=== PATIENT | male | born 1965 | race Caucasian/White ===

== ENCOUNTER 2020-05-19 18:03 | Emergency (ER) | payer OTHER, SELFPAY ==
[2020-05-19 18:08] VITALS: PULSE 0; PULSE 100; RESP 12; RESP 14; RESP 16; O2SAT 80; O2SAT 84; O2SAT 86
--- NOTE | 2020-05-19 18:31 | ED.RN ---
APPROXIMATELY 400ML OF 0.9NS GIVEN
--- NOTE | 2020-05-19 18:33 | ED.RN ---
PT'S BLOOD SUGAR PER EMS WAS 92
[2020-05-19 18:48] VITALS: RESP 14; TEMP 35.9; O2SAT 86; BMI 38.7
--- NOTE | 2020-05-19 19:11 | CHAPLAIN ---
Type of Pastoral Visit ___ Initial Visit ___ Follow-up Visit ___ On-call Visit ___ General Patient Visit ___ Spiritual Assessment ___ Family Conference ___ Bereavement ___ Rapid Response _x__ Code Blue ___ Other (describe below) Pastoral Care Referral From ___ Patient ___ Family ___ Nurse ___ Physician ___ Equipment Operator [employer] ___ General Medical Practitioner _x__ Other (describe below) Sacrament/Intervention ___ Active listening ___ Anointing ___ Sikh ___ Bereavement ___ Communion ___ Toshia exploration ___ ___ Life review _x__ Prayer ___ Reconciliation ___ Sacrament of Sick _x__ Supportive presence ___ Wedding ___ Other (describe below) Pastoral Comments present when the patient arrived; family members began to arrive soon after and were met by this gospel singer; waited extended time with family in waiting room and offered support, water, and prayer; was present when DR met family to tell of of pt; met other family members as they arrived and gave prayer and presence during the encounter; SUSAN Stevenson also present during this time for support
--- NOTE | 2020-05-19 20:08 | CM.ED ---
Social Work Responding to Code Blue. Support provided to patient spouse and patient 11 children. Patient children ranging in ages from 12-35. Support provided to patient throughout patient duration at [facility] ED. Family requesting [facility] , medical team updated. Tiago BELTRAN, KAVITA-S
--- NOTE | 2020-05-19 20:21 | ED.VISSUMM ---
- ER Visit Summary Date of Service: 05/19/20 Chief Complaint: Cardiac arrest History of Present Illness: The patient is a 54 M who presents with cardiac arrest that occurred today. Patient was witnessed by his son to become unresponsive and fall. Another one of his sons initiated CPR. They were unable to palpate a pulse at any time. EMS was contacted. EMS continued CPR. EMS administered epinephrine through an intraosseous line. EMS placed an I-gel airway. EMS states that the patient remained in [facility] during their transportation. Physical Examination: Vital signs showed no spontaneous respirations, no blood pressure, and no pulse. Oral mucosa is pink and moist. There are no heart tones auscultated. Breath sounds are equal bilaterally with mechanical ventilation. Abdomen is nondistended. There is an intraosseous line noted in the left tibia. There are no deformities noted. Femoral pulses are palpated with CPR compressions. There are no femoral or carotid pulses palpated without compressions. Emergency Department Course and Treatment: CPR was continued. ACLS protocols were followed. Patient was given 2 doses of epinephrine here. Patient had no return of spontaneous circulation with this. [id number] ultrasound was used. There is no cardiac activity noted. Patient was pronounced at 1814. Family was notified. Disposition: Impression: Cardiopulmonary arrest Critical care time: 30 minutes. This was time spent obtaining history, performing physical examination, documenting, discussion with family, discussion with consultants, and determining disposition. This note was generated with [employer] (formerly [employer]) dictation software. It may contain incorrect words, spelling, and punctuation that were not noted in review of the chart prior to signing ED Disposition - Plan for ED Patient: Disposition: Diagnosis: Cardiopulmonary arrest Referrals: Care Physician,No Primary [NON-STAFF] -
== END 2020-05-19 20:46 ==
PROVIDERS: Emergency Provider Emergency Medicine; PCP Family Medicine
DX: I46.9 Cardiac arrest, cause unspecified (principal)
CPT/HCPCS: 92950; 99281; J7030; A4216